=== PATIENT | female | born 1950 | race Caucasian/White ===

== ENCOUNTER 2024-06-25 19:21 | Emergency (ER) | payer OTHER, SELFPAY ==
[2024-06-25 19:25] VITALS: BP 147/108
[2024-06-25] MEDS: TYLENOL 650 MG PO (20:59)
--- NOTE | 2024-06-25 23:18 | ED.SKININJ ---
HPI-Injury
General
Chief Complaint: Head Injury
Source: patient and family
Exam Limitations: none
Time Seen by Provider: 06/25/24 20:35
Nursing documentation reviewed up to this point in time: agreed with
History of Present Illness-Injury
Is this injury a work related problem?: No
Is pt an associate of [facility]/[place]?: No
Initial Injury comments:
Patient states she fell onto her patio. Hit left side of head on concrete surface. No LOC. Unable to get self up, helped up by family. Sustained laceration to left eyebrow. 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
Past History
Past History
ED Past Medical History: None
Review of Systems
Review of Systems
Allergies reviewed?: Yes
All Other Systems: ROS reviewed and negative except as documented in HPI and ROS
Constitutional: Reports no symptoms
EENT: Reports no symptoms
Respiratory: Reports no symptoms
Cardiac: Reports no symptoms
ABD/GI: Reports no symptoms
Musculoskeletal: Reports no symptoms
Skin: Reports other (Laceration left eyebrow)
Neurological: Reports no symptoms
Psychiatric: Reports no symptoms
Skin Exam
Laceration
Left:
Length in cm: 2
Orientation: diagonal
Type of Laceration: simple
Any active bleeding?: no active bleeding
Distal skin color and temperature: normal-warm & good color
Normal distal neurovascular exam: Yes
Range of motion: full
Phy Exam
General Physical Exam
General Presentation: well appearing and no apparent distress
General age: appears stated age
General Skin: warm
ENT Exam
ENT Exam: EOMI and TM's normal
Eye Exam
Eye Exam: PERRL and EOMI
Neurological Exam
Neurological Exam: alert, oriented x3, CN II-XII intact, no motor deficits and no sensory deficits
[place] Coma Scale
Eye Opening: Spontaneous
Verbal Response: Oriented
Motor Response: Obeys Commands
GCS Total Score: 15
Musculoskeletal Exam
Musculoskeletal Exam: full ROM and neuro vasc intact
Skin Exam
Skin Exam: normal color, warm/dry and no rash
Psychiatric Exam
Psychiatric Exam: normal mood/affect
Course
Orders/Labs/Results
Orders:
Orders
06/25/24 19:33
CT Cervical Spine W/o Iv Contr Urgent
Comment:
Reason For Exam: injury
CT Head W/o Iv Contrast Urgent
Comment:
Reason For Exam: fall
06/25/24 20:45
Acetaminophen [Tylenol] 650 mg PO NOW STA
06/25/24 20:58
Acetaminophen [Tylenol] 650 mg .ROUTE .STK-MED ONE
Vital Signs
Initial and Last Documented VS:
Initial Vital Signs
Temp Pulse Resp BP Pulse Ox
99 F 83 17 147/108 100
06/25/24 19:25 06/25/24 19:25 06/25/24 19:25 06/25/24 19:25 06/25/24 19:25
Last Documented Vital Signs
Temp Pulse Resp BP Pulse Ox
99 F 82 16 147/108 99
06/25/24 19:25 06/25/24 21:08 06/25/24 21:08 06/25/24 19:25 06/25/24 21:08
Procedures
Laceration Closure
Left Eye brow:
Status of Wound: clean
Description of Wound Edges: sharp
Preparation: cleaned with saline
Revision/Debridement: routine- no revision
Wound exploration: explored to base- no FB
Type of Closure: Dermabond-skin glue
MDM/Problems Addressed
Differential Diagnosis Includes:
Patient to ED after fall on patio. hit left side of forehead on concrete surface and sustained 2cm lac to left eyebrow. Neurologically intact. CT reviewed, no evidece of fx or bleeding. WOuld cleansed with NSS and betadine, closed with dermabond
and steristrips. She is discharged home and will follow up [facility] PCP. given instructions on s/s to return to eD and she is agreeable to plan. Differential includes but not limited to syncopal event, hyotensioin, arrhythmia. intracranial bleeding,
skull fx
*Radiology
Radiology exam reviewed: radiology read reviewed
*Pulse Oximetry
Patient hypoxic: no
*Critical Care Note
Total Time (30-74mins, 75-104mins- exclusive of procedures): Not Applicable
ED Attending Note
-
Portions of this chart may have been created with voice recognition software.� Occasional wrong word or��sound alike� substitutions may have occurred due to the inherent limitations of voice recognition software.
Discharge Plan
Departure
Patient Disposition: Home (Routine Discharge)
Date of Disposition: 06/25/24
Time of Disposition: 20:49
Patient with high blood pressure during this ER visit?: No
Condition: Good
Covid-19: Not Applicable
Discharge Problem:
Head injury
Instructions: Laceration Repair With Glue (DC), Head Injury in Adults (DC), Contusion (DC)
Activity Restrictions/Additional Instructions:
Follow up with your family doctor.
Interventions
Interventions:
*Risk Screen - Suicide Last Done: 06/25/24 19:25
*General Assessment Last Done: 06/25/24 21:08
*Neglect/Abuse Screening Last Done: 06/25/24 21:08
ED- Fall Risk Assessment Last Done: 06/25/24 21:08
*ED COVID-19 Vaccine History Last Done: 06/25/24 19:25
*Nursing Disposition Last Done: 06/25/24 21:08
ED- Neurological Assessment Last Done: 06/25/24 21:10
ED-Skin Assessment Last Done: 06/25/24 21:10
Discharge Date and Time
Discharge Date/Time: 06/25/24 21:11
Print Language: UZBEK
== END 2024-06-25 21:11 | disposition home or self-care (01) ==
LOC: EMR 19:21
PROVIDERS: EMERGENCY PHYSICIAN Emergency Medicine; FAMILY PHYSICIAN Physician Assistant Medical
DX: S09.90XA Unspecified injury of head, initial encounter (principal); S01.112A Laceration without foreign body of left eyelid and periocular area, initial encounter; W19.XXXA Unspecified fall, initial encounter
CPT/HCPCS: 99284; 12011; 70450; 72125

== ENCOUNTER → 2024-12-30 12:47 | Outpatient (REF) | payer OTHER, SELFPAY | LOC: HWRCS 12:47 | PROVIDERS: ATTENDING PHYSICIAN Physician Assistant Medical | DX: R01.1 Cardiac murmur, unspecified (principal) | CPT/HCPCS: 93306 ==

== ENCOUNTER → 2025-03-03 09:41 | Outpatient (REF) | payer OTHER, SELFPAY | LOC: RAD 09:41 | PROVIDERS: ATTENDING PHYSICIAN Internal Medicine Interventional Cardiology | DX: R93.1 Abnormal findings on diagnostic imaging of heart and coronary circulation (principal); I10 Essential (primary) hypertension; R94.31 Abnormal electrocardiogram [ECG] [EKG]; F33.41 Major depressive disorder, recurrent, in partial remission; R06.09 Other forms of dyspnea | CPT/HCPCS: 75574; Q9967 ==

== ENCOUNTER 2025-04-21 07:54 | Day surgery (SDC) | payer OTHER, SELFPAY ==
[2025-04-21] VITALS (13 sets, daily range): BP systolic 114–147; BP diastolic 66–98; BMI 21.2; BMI 19.8
[2025-04-21] MEDS: NSS 147 ML IV (08:39)
[2025-04-21] MEDS: LOW STRENGTH ASPIRIN 81 MG PO (08:42)
[2025-04-21 09:53] LABS: ACT-LR - POC 276 Seconds (116-155)
--- NOTE | 2025-04-21 11:50 | ITS.CL.CATH ---
Hospital Scientist - Catheterization
Cardiac Catheterization
Procedure Report:
LEFT HEART CATHETERIZATION
Date of Procedure: April 21, 2025
Referring: Samanta Martinez PA-C
PROCEDURES:
1. Left heart catheterization, coronary angiogram.
2. Moderate sedation.
3. Functional physiologic testing with IFR of Mid LAD
INDICATION: Ongoing dyspnea on exertion with significantly elevated calcium on recent coronary CT angiogram
ACCESS: Right radial artery, 6Fr. sheath, under US guidance.
HEMODYNAMICS : (mmHg)
AO (s/d) : 129/71
LVEDP : 10
No significant gradient across the aortic valve to suggest aortic stenosis.
CORONARY FINDINGS: Heavily calcified coronary arteries.
Dominance: Right
Left Main Trunk (LMT): Large caliber vessel that gives rise to the LAD and LCx branches and is free of angiographic disease.
Left Anterior Descending Artery (LAD): Large caliber vessel that gives off 2 major diagonal branches as it courses along the anterior inter-ventricular groove before wrapping around the cardiac apex. There is a medium caliber high rising diagonal
branch with diffuse 40% stenosis in the proximal portion. Mid LAD has diffuse up to 60 to 70% stenosis with IFR negative at 0.91.
Left Circumflex Artery (LCx): Small to medium caliber vessel that gives off 1 major small caliber obtuse marginal (OM) branches as it courses along the atrio-ventricular (AV) groove. Proximal OM1 has eccentric 70% stenosis.
Right Coronary Artery (RCA): Large caliber dominant vessel that gives rise to the posterior descending artery (RPDA) and postero-lateral ventricular (RPLV) branches distally. There is mild diffuse atherosclerotic plaque.
HEMODYNAMIC ASSESSMENT OF THE MID LAD WITH A [place] OMNI WIRE: The origin of the left coronary artery was cannulated with a 5 Fr JL 3.5 guide catheter. Intravenous heparin was administered and the ACT was followed during the procedure. Two
hundred micrograms of intracoronary nitroglycerin was given through the guide catheter. A [place] Omni wire was advanced to the guide catheter tip and normalized just outside the guide catheter. The Omni wire was then carefully manipulated across
the stenosis in the mid LAD with the iFR above the ischemic threshold serially measuring 0.91 x 3. the Omni wire was then pulled back to the guide catheter where the Pd/Pa measured 1.0 confirming no baseline drift in pressure readings
SEDATION: 37 minutes of procedural sedation was utilized. IV Midazolam and IV Fentanyl were administered. An independent medical auditor was present to assist with and help manage the patient's level of consciousness and physiologic status.
RADIATION SUMMARY: Fluoro Time (min): 4.7, Dose (mGy): 144.09, DAP (Gy.cm2) : 9.6
Closure Device: There were no immediate intra-procedural complications. The sheath was pulled in the wharf labourer and a vascular-band applied to the right wrist for radial artery hemostasis using the patent hemostasis technique.
CONCLUSIONS
1. Moderate disease in the mid LAD which is IFR negative at 0.91.
2. 70% eccentric stenosis in the proximal OM1 which is a small caliber vessel
3. Heavily calcified coronary arteries.
4. Normal LVEDP at 10 mmHg
RECOMMENDATIONS
1. Wean radial band per protocol. Monitor right hand perfusion and for bleeding from the radial site following removal of the vascular-band following trans-radial access.
2. Continue aggressive medical therapy and risk factor modification for secondary CAD prevention. Continue aggressive medical therapy for coronary artery disease
3. Hydrate with normal saline to mitigate the risk of contrast-induced acute kidney injury.
4. Very strongly emphasized importance of complete alcohol abstinence with ongoing abuse.
5. Follow-up with outpatient cardiology
Copy to: Samanta Martinez PA-C
Carola Avila MD, [facility], [facility]
== END 2025-04-21 14:10 | disposition home or self-care (01) ==
LOC: CATH 07:54
PROVIDERS: ATTENDING PHYSICIAN Internal Medicine Interventional Cardiology; FAMILY PHYSICIAN Physician Assistant Medical
DX: I25.10 Atherosclerotic heart disease of native coronary artery without angina pectoris (principal); R06.09 Other forms of dyspnea; I10 Essential (primary) hypertension; I25.84 Coronary atherosclerosis due to calcified coronary lesion; F17.210 Nicotine dependence, cigarettes, uncomplicated
CPT/HCPCS: 93799; 99152; 99153; 93458; C1769; C1894; Q9967

== ENCOUNTER 2025-07-01 10:34 | Emergency (ER) | payer OTHER, SELFPAY ==
[2025-07-01 10:35] VITALS: BP 157/106
[2025-07-01 11:03] VITALS: BMI 20.6
[2025-07-01 11:14] LABS: Hematocrit 38.6 % (37.0-47.0); Hemoglobin 13.5 g/dL (12.0-16.0); Mean Corp Hgb Conc. 35.0 g/dL (33.0-37.0); Mean Corpuscular Volume 99.0 fL (81.0-99.0); Nucleated Red Blood Cells % 0 %; Platelet Count 221 10^3/uL (130-400); Red Cell Dist. Width 15.8 % (11.5-14.5)
[2025-07-01 11:21] LABS: ALT (SGPT) 315 U/L (0-35); AST (SGOT) 281 U/L (14-36); Albumin 3.5 g/dl (3.5-5.0); Alkaline Phosphatase 549 U/L (38-126); Blood Urea Nitrogen 6 mg/dl (7-17); Calcium 8.9 mg/dl (8.4-10.2); Carbon Dioxide 27 mmol/L (22-30); Chloride 107 mmol/L (98-107); Estimated Creatinine Clearance 66 ml/min; Glucose 114 mg/dl (70-99); Potassium 3.8 mmol/L (3.5-5.1); Sodium 137 mmol/L (135-145); Total Protein 6.7 g/dl (6.3-8.2); eGFR > 60.00
--- NOTE | 2025-07-01 11:27 | ED.GENMED ---
History of Present Illness
General
Chief Complaint: Abnormal Lab Value
Source: patient
Exam Limitations: none
Time Seen by Provider: 07/01/25 11:14
History of Present Illness
History of Present Illness:
75 year old female presents with fatigue and elevated LFT's as outpatient. She denies any pain. She denies any fever or rash. She has had elevated liver functions in the past and has followed up with GI. She recently doubled her dose of Lipitor.
She had a cardiac catheterization earlier this year. No shortness of breath or chest pain
Past History
Past History
ED Past Medical History: None
Phy Exam
Physical Exam
Physical Exam:
General: Well-appearing female no respiratory distress
HEENT normal cephalic atraumatic sclera anicteric neck is supple
Heart: Regular rate and rhythm
Lungs: Clear no wheeze
Abdomen is soft nontender no organomegaly nondistended
Extremities: No cyanosis or edema
Course
Orders/Labs/Results
Orders:
Orders
07/01/25 11:02
Complete Blood Count/With Diff Urgent
Comprehensive Metabolic Panel Urgent
Monotest Urgent
Comment: ADD ON
07/01/25 11:33
Add On- LAB Urgent
Tests Added?: monotest
US Abdomen Complete/Upper Urgent
Comment:
Reason For Exam: elevated LFT
07/01/25 13:31
Hepatitis A Antibody, Total Urgent
Hepatitis A IgM Antibody Urgent
Hepatitis B Core Ab, IgM Urgent
Hepatitis B Core Ab, Total Urgent
Hepatitis B Surface Antibody Urgent
Hepatitis B Surface Antigen Urgent
Hepatitis C Antibody Urgent
Abnormal Lab Results
07/01/25
11:02
RBC 3.90 L 10^6/uL
(4.20-5.40)
MCH 34.6 H pg
(27.0-31.0)
RDW 15.8 H %
(11.5-14.5)
MPV 12.0 H fL
(7.4-10.4)
Absolute Neuts (auto) 7.7 H 10^3/uL
(1.4-6.5)
Lymphocytes % 19.8 L %
(20.5-51.1)
BUN 6 L mg/dl
(7-17)
Creatinine 0.5 L mg/dL
(0.6-1.0)
Glucose 114 H mg/dl
(70-99)
AST 281 H U/L
(14-36)
ALT 315 H U/L
(0-35)
Alkaline Phosphatase 549 H U/L
(38-126)
07/01/25 11:02
07/01/25 11:02
Vital Signs
Initial and Last Documented VS:
Initial Vital Signs
Temp Pulse Resp BP Pulse Ox
97.8 F 71 18 157/106 97
07/01/25 10:35 07/01/25 10:35 07/01/25 10:35 07/01/25 10:35 07/01/25 10:35
Last Documented Vital Signs
Temp Pulse Resp BP Pulse Ox
97.8 F 52 16 133/78 98
07/01/25 10:35 07/01/25 14:15 07/01/25 14:19 07/01/25 14:00 07/01/25 14:15
MDM/Problems Addressed
Differential Diagnosis Includes:
Patient presented with elevated liver functions as an outpatient. Her only complaint is fatigue. Will recheck labs. Abdomen benign.
Question possible statin causing elevated LFTs vs viral illness
*Pulse Oximetry
SaO2: 96
Oxygen Mode of Delivery: Room air
Patient hypoxic: no
*Critical Care Note
Total Time (30-74mins, 75-104mins- exclusive of procedures): Not Applicable
Update Note
Update Note:
Ultrasound abdomen negative. Hepatitis profile ordered monotest negative. Patient has slight transaminitis but is relatively asymptomatic. She has benign exam. No indication for admission but will advise follow-up with family doctor for recheck
of labs.
ED Attending Note
-
Portions of this chart may have been created with voice recognition software.� Occasional wrong word or��sound alike� substitutions may have occurred due to the inherent limitations of voice recognition software.
Discharge Plan
Departure
Patient Disposition: Home (Routine Discharge)
Date of Disposition: 07/01/25
Time of Disposition: 14:51
Patient with high blood pressure during this ER visit?: No
Discharge Problem:
Elevated LFTs
Prescriptions:
No Action
ascorbic acid (vitamin C) [Vitamin C] 1,000 mg Tablet
1,000 mg PO DAILY
levothyroxine 150 mcg Tablet
150 mcg PO DAILY
aspirin 81 mg Tablet
81 mg PO DAILY
atorvastatin [Lipitor] 80 mg tablet
80 mg PO DAILY Qty: 30 11RF
metoprolol succinate 50 mg tablet extended release 24 hr
50 mg PO DAILY Qty: 30 11RF
cyanocobalamin (vitamin B-12) 1,000 mcg Tablet
1,000 mcg PO DAILY
cephalexin 500 mg Capsule
500 mg PO TID
Rx Instructions:
for 7 days starting 06/25/25
Referrals:
Camille Root PA-C [Family Provider, Family Practice]
Activity Restrictions/Additional Instructions:
Please follow-up with your doctor for recheck of your labs. Consider changing or decreasing the dose of your statin as this may be the cause of your elevated liver functions.
Interventions
Interventions:
*Risk Screen - Suicide Last Done: 07/01/25 10:35
*General Assessment Last Done: 07/01/25 11:05
*Neglect/Abuse Screening Last Done: 07/01/25 11:04
*ED- Fall Risk Assessment Last Done: 07/01/25 11:04
*ED COVID-19 Vaccine History Last Done: 07/01/25 11:04
*ED Influenza Vaccine History Last Done: 07/01/25 11:04
Discharge Date and Time
Print Language: LATVIAN
[2025-07-01 13:10] VITALS: BP 125/79
[2025-07-01 14:00] VITALS: BP 133/78
[2025-07-01 14:42] LABS: Hepatitis B Surface Antigen Negative (Negative)
[2025-07-01 15:00] LABS: Hepatitis A Antibody, Total Negative (Negative); Hepatitis C Antibody Negative (Negative)
[2025-07-01 15:03] VITALS: BP 145/87
[2025-07-01 19:46] LABS: GGTP 1346 U/L (12-43); Lipase 128 U/L (23-300)
== END 2025-07-01 15:23 | disposition home or self-care (01) ==
LOC: EMR 10:34
PROVIDERS: Physician Assistant; EMERGENCY PHYSICIAN Student in an Organized Health Care Education/Training Program; FAMILY PHYSICIAN Physician Assistant Medical
DX: R74.01 Elevation of levels of liver transaminase levels (principal); Z79.82 Long term (current) use of aspirin
CPT/HCPCS: 99284; 76700; 80053; 82550; 82977; 83690; 85025; 86308; 86704; 86706; 86708; 86803; 87340